=== PATIENT | male | born 1960 | race Caucasian/White ===

== ENCOUNTER 2020-08-28 13:47 | Emergency (ER) | payer SELFPAY ==
[~2020-08-28] VITALS: Ht 182.9 cm; Wt 113.6 kg
--- NOTE | 2020-08-28 14:12 | PHYS DOC ---
Past History Additional Past Medical Histor: chronic back pain Past Surgical History sinus Drug Use: None General Adult EDM: Chief Complaint: WRIST PAIN HPI: HPI: Patient is a 60-year-old left-handed male who dropped a riding lawnmower in his right hand yesterday evening. Patient complains of moderate in intensity but becomes more severe with palpation and range of motion pain in his right thumb and right first metacarpal as well as the left ulnar styloid. Pain is throbbing in nature and worse with palpation. Pain is nonradiating. Review of Systems: Review of Systems: Constitutional: Denies fever or chills Eyes: Denies change in visual acuity HENT: Denies nasal congestion or sore throat Respiratory: Denies cough or shortness of breath Cardiovascular: Denies chest pain or edema GI: Denies abdominal pain, nausea, vomiting, bloody stools or diarrhea : Denies dysuria Musculoskeletal: Denies back pain but has right thumb and right wrist pain Integument: Denies rash Neurologic: Denies headache, focal weakness or sensory changes Endocrine: Denies polyuria or polydipsia Lymphatic: Denies swollen glands Psychiatric: Denies depression or anxiety Physical Exam: PE: Constitutional: Well developed, well nourished, no acute distress, non-toxic appearance. [] HENT: Normocephalic, atraumatic, bilateral external ears normal, no trismus nose normal. [] Eyes: PERRLA, EOMI, conjunctiva normal, no discharge. [] Neck: Normal range of motion, no tenderness, supple, no stridor. [] Cardiovascular:Heart rate regular rhythm, no murmur [] Lungs & Thorax: Bilateral breath sounds clear, no respiratory distress Abdomen: soft, no tenderness, no masses, no pulsatile masses. [] Skin: Warm, dry, no erythema, no rash. [] Back: No tenderness, no CVA tenderness. [] Extremities: Tenderness and swelling to the right first metacarpal and right thumb, limited range of motion due to pain. Tenderness to the right ulnar styloid. Neurovascular intact distally to the right hand Neurologic: Alert and oriented X 3, normal motor function, normal sensory function, no focal deficits noted. [] Psychologic: Affect normal, judgement normal, mood normal. [] Current Patient Data: Vital Signs: Vital Signs Date Time Temp Pulse Resp B/P (MAP) Pulse Ox O2 Delivery O2 Flow Rate FiO2 08/28/20 13:50 72 18 142/84 (103 97 Room Air EKG: EKG: [] Radiology/Procedures: Radiology/Procedures: [][address] [id number] IMAGING REPORT Signed PATIENT: NOHELIA GLOVER ACCOUNT: [id number] : 1960 LOCATION: ER AGE: 60 SEX: M EXAM STATUS: PRE ER ORD. PHYSICIAN: ENRIQUE PELAEZ MD REASON: lawnmower fell on it. pain thumb/1st metacarpal PROCEDURE: HAND RIGHT 3V Three-view right hand and wrist radiographs 08/28/2020 CLINICAL HISTORY: Lawnmower fell on right thumb. Right hand and wrist pain. PA, lateral and oblique digital radiographs of the right hand and wrist were obtained. A 3 mm slightly irregular metallic foreign body is seen within the soft tissues of thenar eminence which is presumably old. No fracture or dislocation of the right wrist or right hand is seen. Mild degenerative changes are seen involving the interphalangeal joints along the first MCP joint of the right hand. Mild to moderate degenerative changes are seen involving the radiocarpal, mid carpal and first carpal metacarpal joint. IMPRESSION: No fracture or dislocation of the right wrist or hand is seen. Electronically signed by: Rudy Stewart MD (08/28/2020 2:30 PM) [id number] DICTATED AND SIGNED BY: RUDY STEWART MD DATE: 08/28/20 1430 CC: ENRIQUE PELAEZ MD; PCP,NO ~MTH0 0 Heart Score: Risk Factors: Risk Factors: DM, Current or recent (<one month) smoker, HTN, HLP, family history of CAD, obesity. Risk Scores: Score 0 - 3: 2.5% MACE over next 6 weeks - Discharge Home Score 4 - 6: 20.3% MACE over next 6 weeks - Admit for Clinical Observation Score 7 - 10: 72.7% MACE over next 6 weeks - Early Invasive Strategies Course & Med Decision Making: Course & Med Decision Making Pertinent Labs and Imaging studies reviewed. (See chart for details) [] 60-year-old male with a crush injury to his right hand. X-rays are negative. Patient be placed in a splint for comfort and given a referral to a orthopedist. Procedure note: Clinical indication crush injury right hand Clinical procedure: Splint application A Ortho-Glass volar splint was applied to the right hand by the nurse, examined by me after application, neurovascular intact distally with cap refill less than 2 seconds. Dragon Disclaimer: Dragon Disclaimer: This electronic medical record was generated, in whole or in part, using a voice recognition dictation system. Departure Departure: Impression: Primary Impression: Crushing injury of right hand Additional Impression: Contusion of right wrist Disposition: 01 DC HOME SELF CARE/HOMELESS Condition: STABLE Referrals: PCP,SHIVA (PCP) SHARON RIOS MD 3 days Patient Instructions: Cast or Splint Care, Hand Contusion Additional Instructions: EMERGENCY DEPARTMENT GENERAL DISCHARGE INSTRUCTIONS THANK YOU for coming to [facility] Emergency Department (ED) today and trusting us with your care. We trust that you had a positive experience in our Emergency Department. If you wish to speak to the department Management you can contact the emergency department at YOUR FOLLOW UP INSTRUCTIONS ARE FOLLOWS: Do you have a private doctor? If you do not have a private doctor, please ask for a resource list of physicians or clinics that may be able to assist you with follow up care. The Emergency Physician has interpreted your x-rays. The X-ray specialist will also review them. If there is a change in the findings you will be notified in 48 hours when at all possible. A lab test or lab culture may have been done, your results will be reviewed and you will be notified if you need a change in treatment. ADDITIONAL INSTRUCTIONS AND INFORMATION Your care today has been supervised by a physician who is specially trained in [facility] care. Many problems require more than one evaluation for a complete diagnosis and treatment. We recommend that you schedule your follow up appointment as recommended to ensure complete treatment of your illness or injury. If you are unable to obtain follow up care and continue to have a problem, or if your condition worsens we recommend that you return to the ED. We are not able to safely determine your condition over the phone nor are we able to give sound medical advice over the phone. For these safety reasons, if you call for medical advice we will ask you to come to the ED for further evaluation If you have any questions regarding these discharge instructions please call the ED at SAFETY INFORMATION In the interest of safety, wellness, and injury prevention; we encourage you to wear your seatbelt, if you smoke; quit smoking, and we encourage your family to use protective helmet for bicycling and other sporting events that present an increased risk for head injury. IF YOUR SYMPTOMS WORSEN OR NEW SYMPTOMS DEVELOP, OR YOU HAVE CONCERNS ABOUT YOUR CONDITION; OR IF YOUR CONDITION WORSENS WHILE YOU ARE WAITING FOR YOUR FOLLOW UP APPOINTMENT; EITHER CONTACT YOUR PRIMARY CARE DOCTOR, THE PHYSICIAN WHOSE NAME AND NUMBER YOU WERE GIVEN, OR RETURN TO THE ED IMMEDIATELY. Scripts Hydrocodone Bit/Acetaminophen (NORCO 10-325 TABLET) 1 Each Tablet 1 TAB PO QID for pain, #12 TAB Prov: ENRIQUE PELAEZ MD 08/28/20 ENRIQUE PELAEZ MD Aug 28, 2020 14:12
--- NOTE | 2020-08-28 14:33 | RAD ---
Three-view right hand and wrist radiographs 08/28/2020 CLINICAL HISTORY: Lawnmower fell on right thumb. Right hand and wrist pain. PA, lateral and oblique digital radiographs of the right hand and wrist were obtained. A 3 mm slightly irregular metallic foreign body is seen within the soft tissues of thenar eminence which is presumably old. No fracture or dislocation of the right wrist or right hand is seen. Mild degenerative changes are seen involving the interphalangeal joints along the first MCP joint of the right hand. Mild to moderate degenerative changes are seen involving the radiocarpal, mid carpal and first carpal metacarpal joint. IMPRESSION: No fracture or dislocation of the right wrist or hand is seen. Electronically signed by: Rudy Stewart MD (08/28/2020 2:30 PM) [id number]
[2020-08-28] MEDS ORDERED: HYDR-3136 PO (15:02)
[2020-08-28 15:14] VITALS: BP 127/74
== END 2020-08-28 15:10 | disposition home or self-care (01) ==
LOC: ER 13:47
DX: S60.211A Contusion of right wrist, initial encounter (principal); G89.29 Other chronic pain; W20.8XXA Other cause of strike by thrown, projected or falling object, initial encounter; Y93.89 Activity, other specified; Y92.89 Other specified places as the place of occurrence of the external cause; Y99.8 Other external cause status
CPT/HCPCS: 29125; 73110; 73130; 99284